=== PATIENT | female | born 1970 | race Caucasian/White ===

== ENCOUNTER 2018-07-28 17:03 | Observation (INO) | payer BC, OTHER ==
[2018-07-28] MEDS ORDERED: Nitroglycerin 2% Ointment 1 INCH/1 GM Packet ONE (17:34)
[2018-07-28 17:42] LABS: #Basophils 0.1 thou/uL (0.0-0.2); #Eosinphils 0.5 thou/uL (0.0-0.7); #Lymphocytes 2.4 thou/uL (1.20-3.40); #Monocytes 0.7 thou/uL (0.11-0.59); #Neutrophils 2.9 thou/uL (1.40-6.50); %Basophils 1.2 % (0.0-1.0); %Lymphocytes 36.5 % (21.0-51.0); %Neutrophils 44.3 % (42.0-75.0); Hemoglobin 14.2 g/dL (12.0-16.0); Mean Corpuscular HGB CONC 32.5 g/dL (32.0-36.0); Mean Corpuscular Hemoglobin 30.2 pg (27.0-31.0); Mean Platelet Volume 5.8 fL (7.4-10.4); Platelet Count 415 thou/uL (130-400); RBC Distribution Width 12.4 % (11.5-14.5); White Blood Cell (WBC) Count 6.6 thou/uL (4.8-10.8)
[2018-07-28 18:02] LABS: ALT (SGPT) 14 U/L (8-55); AST (SGOT) 15 U/L (5-34); Albumin 4.4 g/dL (3.5-5.0); Alkaline Phosphatase 44 U/L (40-150); Anion Gap 12 mmol/L (10-20); BUN (Urea Nitrogen) 13 mg/dL (7.0-18.7); Bilirubin, Total 0.3 mg/dL (0.2-1.2); CK (CPK) 59 U/L (29-168); Calc. Creatinine Clearance 0 mL/min (70-130); Calcium 9.4 mg/dL (7.8-10.44); Carbon Dioxide 25 mmol/L (22-29); Chloride 103 mmol/L (98-107); Estimated GFR-MDRD 72; Globulin 2.8 g/dL (2.4-3.5); Glucose 114 mg/dL (70-105); Lipase 36 U/L (8-78); Potassium 3.7 mmol/L (3.5-5.1); Protein, Total 7.2 g/dL (6.0-8.3); Sodium 136 mmol/L (136-145)
[2018-07-28 18:08] LABS: CKMB 0.4 ng/mL (0-6.6); Troponin I Less than 0.010 ng/mL (< 0.028)
--- NOTE | 2018-07-28 18:50 | RAD ---
PORTABLE CHEST: HISTORY: Chest pain. COMPARISON: 11/25/2013 FINDINGS: Heart size and mediastinum are within normal limits. Lungs are clear of infiltrates. No significant bony findings. IMPRESSION: No active intrathoracic disease. POS: [facility]
[2018-07-28 20:06] VITALS: BMI 31.6
[2018-07-28] MEDS ORDERED: Acetaminophen 325 MG TAB PO PRN (20:17)
[2018-07-28] MEDS ORDERED: Aspirin 325 MG TAB PO SCH (20:30)
[2018-07-28 21:41] LABS: Troponin I Less than 0.010 ng/mL (< 0.028)
[2018-07-28] MEDS ORDERED: Fioricet 325/50/40 mg Tablet PO PRN (22:50)
[2018-07-28] MEDS ORDERED: Morphine 4 MG/ML VIAL SLOW IVP PRN (23:41)
[2018-07-28 23:46] LABS: Troponin I Less than 0.010 ng/mL (< 0.028)
[2018-07-29] MEDS ORDERED: Ondansetron ODT 4 MG TAB PO PRN (00:57)
[2018-07-29 05:24] LABS: #Basophils 0.1 thou/uL (0.0-0.2); #Eosinphils 0.5 thou/uL (0.0-0.7); #Lymphocytes 2.3 thou/uL (1.20-3.40); #Monocytes 0.6 thou/uL (0.11-0.59); #Neutrophils 2.6 thou/uL (1.40-6.50); %Basophils 0.9 % (0.0-1.0); %Eosinophils 8.3 % (0.0-10.0); %Lymphocytes 37.7 % (21.0-51.0); %Monocytes 10.5 % (0.0-10.0); %Neutrophils 42.6 % (42.0-75.0); Hemoglobin 13.1 g/dL (12.0-16.0); Mean Corpuscular HGB CONC 33.3 g/dL (32.0-36.0); Mean Corpuscular Hemoglobin 31.1 pg (27.0-31.0); Mean Corpuscular Volume 93.4 fL (78.0-98.0); Mean Platelet Volume 5.9 fL (7.4-10.4); Platelet Count 366 thou/uL (130-400); RBC Distribution Width 12.5 % (11.5-14.5); Red Blood Cell (RBC) Count 4.21 mill/uL (4.20-5.40)
[2018-07-29 05:35] LABS: Anion Gap 9 mmol/L (10-20); BUN (Urea Nitrogen) 12 mg/dL (7.0-18.7); Calc. Creatinine Clearance 113 mL/min (70-130); Calcium 8.6 mg/dL (7.8-10.44); Carbon Dioxide 24 mmol/L (22-29); Chloride 108 mmol/L (98-107); Estimated GFR-MDRD 83; Glucose 90 mg/dL (70-105); Potassium 3.7 mmol/L (3.5-5.1); Sodium 137 mmol/L (136-145)
--- NOTE | 2018-07-29 05:56 | HP ---
CHIEF COMPLAINT: Chest pain. HISTORY OF PRESENT ILLNESS: This is a 48-year-old female with past medical history of skin melanoma, status post removal; left shoulder mass removed, presenting with left-sided chest pain which occurre d on the day of admission. 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 Patient stated that pain was very lennie re and that she took aspirin which did not help. The patient also took a nitro and the patient state s that she has had something similar in the past, but this time around, the pain was more severe than the chest pain that she had in the past. 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 Patient states that during the episode, she became lightheaded, but denied any shortness of breath. The patient took BC powder during the e pisode including aspirin which did not help. In the ED, the patient took nitro. Patient denies feve r, nausea, or vomiting. Patient denies any pain shooting into the neck, being diaphoretic. REVIEW OF SYSTEMS: Positive for chest pain, lightheadedness, otherwise as documented in the HPI. Al l other systems were reviewed and were negative. FAMILY HISTORY: Dad had diabetes and also heart disease, status post CABG. He when he was in t he 70s. PAST MEDICAL HISTORY: Melanoma, left shoulder mass removed. SURGICAL HISTORY: Tumor removed from left arm in 1984 and right abdomen/oblique region tumor removal , hemangioma per patient. PSYCHIATRIC HISTORY: No previous psychiatric history. SOCIAL HISTORY: Patient says that she drinks half a pack per day and she stopped smoking 6 months ag o, but started smoking again because she has been dealing with stress. The patient has been smoking for 15 years. Patient is an occasional drinker. Denies any illicit drug use. The patient lives at home with family. KNOWN ALLERGIES: IV CONTRAST. CURRENT MEDICATIONS: The patient takes no medications. PHYSICAL EXAMINATION: VITAL SIGNS: Blood pressure is 148/86, pulse 69, respiratory rate of 18, temperature 97.9, O2 satura tion of 98. GENERAL APPEARANCE: The patient is lying in bed, not in acute distress, speaking in full sentences, alert and oriented x3. HEENT: Normocephalic, atraumatic. Pupils are equally round and reactive to light. Extraocular move ments are intact. No scleral icterus. NECK: Supple. No JVD. Trachea is midline. CARDIOVASCULAR: Positive S1, S2, regular rate and rhythm. No murmurs, no gallops, no rubs appreciat ed. The patient did have some reproducible chest tenderness with palpation located in the left upper chest. ABDOMEN: Obese abdomen, nontender, nondistended. No pulsatile masses. No peritoneal signs, no rigi dity, no guarding. EXTREMITIES: 5/5 upper extremity strength, 5/5 lower extremity strength. The patient did have good pulses at the upper and lower extremities. NEUROLOGIC: Cranial nerves II through XII grossly intact. No focal neurologic deficits noted. SKIN: Warm, dry, and intact. No rashes seen. PSYCHIATRIC: Normal affect, alert, and oriented x3. IMAGING: A 12-lead EKG shows normal sinus rhythm. Chest x-ray was negative for any infiltrates, no pneumothorax, no hemothorax noted. In the ED, the patient received nitro. Patient received normal saline. LABORATORY DATA: WBC 6.6, hemoglobin is 14.2, hematocrit is 43.7, platelet count of 415,000. D-dime r less than 0.27. Sodium is 136, potassium is 3.7, chloride is 103, carbon dioxide of 25, BUN 13, cr eatinine 0.84, glucose 114. Troponin is less than 0.010. Triglycerides 83, cholesterol 172, lipase 36. ASSESSMENT AND PLAN: This is a 48-year-old female being admitted for; 1. Chest pain, rule out acute coronary syndrome. At this point, troponins have been negative x2. P atient has been given morphine for pain, nitro, aspirin. We will just being monitored on tele and we have ordered echo and also Cardiology is going to see the patient. The patient will benefit from st ress test. Since myocardial infarction in woman can be atypical presentation, we will monitor the pa tient very closely. 2. Stress related events, most likely induced the patient's chest pain. Per the patient, she has be en having a lot of stress. She stopped smoking 6 months ago, but because of her recent stress, which she does not feel comfortable discussing that can be probably contributing to the patient's chest di scomfort. We will continue to encourage the patient to deal with her stress situation and to try and find comfort and we will monitor the patient. 3. Tobacco abuse. We have encouraged the patient to stop smoking. 4. Gastrointestinal and deep venous thrombosis prophylaxis. We will do sequential compression devic es. We will encourage ambulation. We will do no chemical gastrointestinal prophylaxis.
[2018-07-29] MEDS ORDERED: Nicotine 14 MG PATCH TD SCH (06:00)
--- NOTE | 2018-07-29 08:47 | PDOC.PN ---
- Subjective Encounter Start Date: 07/29/18 Encounter Start Time: 08:46 Ms. Lopez was seen today in follow-up of chest pain. she says she is feeling better this morning. She no longer has any chest pain. - Objective Resuscitation Status: Resuscitation Status FULL:Full Resuscitation MAR Reviewed: Yes Vital Signs & Weight: Vital Signs (12 hours) Temp Pulse Resp BP Pulse Ox 07/29/18 08:24 98.1 F 73 16 128/68 98 07/29/18 04:35 98.1 F 61 18 97/52 L 97 Weight Weight 173 lb I&O: 07/28/18 07/29/18 07/30/18 06:59 06:59 06:59 Intake Total 500 Balance 500 Result Diagrams: 07/29/18 04:51 07/29/18 04:51 Phys Exam - Physical Examination HEENT: PERRLA Respiratory: no wheezing, no rales, no rhonchi, clear to auscultation bilateral Cardiovascular: RRR, no significant murmur, no rub Gastrointestinal: soft, non-tender, no distention, positive bowel sounds Musculoskeletal: no edema Dx/Plan (1) Chest pain Code(s): R07.9 - CHEST PAIN, UNSPECIFIED Status: Acute (2) Tobacco abuse Code(s): Z72.0 - TOBACCO USE Status: Acute - Plan * Chest pain- EKG reviewed by me, and She has some non-specific ST wave changes. A routine treadmill stress test would be non-diagnostic. I explained this to the patient, and offered to refer her to [facility] for a Dobutamine Echo since she has some fear about taking a nuclear stress test. She says she will try the exercise Cardiolite. * Tobacco abuse- brief counseling * Await stress test results.
[2018-07-29 12:02] VITALS: BP 113/61; TEMP 98.3
--- NOTE | 2018-07-29 13:45 | DIS ---
PRIMARY CARE PHYSICIAN: Dr. Kelton Mckeon DATE OF ADMISION: 07/29/2018 DATE OF DISCHARGE: 07/29/2018 DISCHARGE DISPOSITION: Home. PRIMARY DISCHARGE DIAGNOSES: 1. Chest pain. 2. Tobacco abuse. DISCHARGE MEDICATIONS: None. CODE STATUS: FULL CODE. ALLERGIES: IODINATED CONTRAST and SHELLFISH. PROCEDURES DONE DURING ADMISSION: The patient had an exercise Cardiolite which was negative, EF was estimated at 78% and there was no reversible ischemia. HOSPITAL COURSE: Ms. Lopez is a pleasant 48-year-old female who presented to the emergency room compl aining of chest pain. The symptoms of which were somewhat atypical. However, given her history of s moking and history of heart disease in her family she was placed in observation. She was ruled out. Lipid panel was obtained and the total cholesterol was 179, LDL was 102, HDL was 60. Again stress t est was negative. The following morning her symptoms had completely resolved and she is therefore be ing discharged home. She is to follow up with Dr. Kelton Mcekon in approximately 2-3 weeks.
--- NOTE | 2018-07-29 15:03 | NM ---
MYOCARDIAL PERFUSION EVAULATION: INDICATIONS: Chest pain. RADIOPHARMACEUTICAL: Technetium 99m sestamibi IV, 33 millicuries, with stress. Technetium 99m sestamibi IV, 11 millicuries, with rest. FINDINGS: When comparing the rest and stress images, no reversible myocardial perfusion defect is evident. The re is normal wall motion and thickening. Estimated LVEF is 78%. IMPRESSION: Normal myocardial perfusion evaluation. POS: [facility]
== END 2018-07-29 14:02 | disposition home or self-care (01) ==
LOC: ERS 17:03 → 2SW 19:07
PROVIDERS: ADMIT Internal Medicine; ATTEND Internal Medicine
DX: R07.2 Precordial pain (principal); F17.210 Nicotine dependence, cigarettes, uncomplicated; Z91.041 Radiographic dye allergy status; Z91.013 Allergy to seafood
CPT/HCPCS: 36415; 71045; 78452; 80048; 80053; 80061; 82550; 82553; 83690; 83880; 84484; 85025; 85379; 93005; 93017; 93306; 96360; 96374; A9500; G0378; J2270

== ENCOUNTER 2019-01-27 00:08 | Outpatient (CLI) | payer OTHER ==
[2019-01-27 12:11] LABS: #Eosinphils 0.2 thou/uL (0.0-0.7); #Lymphocytes 1.5 thou/uL (1.20-3.40); #Monocytes 0.4 thou/uL (0.11-0.59); #Neutrophils 2.9 thou/uL (1.40-6.50); %Basophils 0.8 % (0.0-1.0); %Eosinophils 4.1 % (0.0-10.0); %Monocytes 8.7 % (0.0-10.0); %Neutrophils 57.4 % (42.0-75.0); Hemoglobin 15.3 g/dL (12.0-16.0); Mean Corpuscular HGB CONC 32.9 g/dL (32.0-36.0); Mean Corpuscular Hemoglobin 29.9 pg (27.0-31.0); Mean Corpuscular Volume 90.9 fL (78.0-98.0); Mean Platelet Volume 5.7 fL (7.4-10.4); Platelet Count 410 thou/uL (130-400); RBC Distribution Width 12.2 % (11.5-14.5); Red Blood Cell (RBC) Count 5.13 mill/uL (4.20-5.40); White Blood Cell (WBC) Count 5.1 thou/uL (4.8-10.8)
[2019-01-27 12:49] LABS: Anion Gap 14 mmol/L (10-20); BUN (Urea Nitrogen) 10 mg/dL (7.0-18.7); Calc. Creatinine Clearance 0 mL/min (70-130); Calcium 10.1 mg/dL (7.8-10.44); Carbon Dioxide 24 mmol/L (22-29); Chloride 104 mmol/L (98-107); Estimated GFR-MDRD Greater than 90; Glucose 73 mg/dL (70-105); Sodium 138 mmol/L (136-145)
== END 2019-01-27 00:09 | disposition home or self-care (01) ==
LOC: LABBT 00:08
PROVIDERS: ATTEND Orthopaedic Surgery
DX: Z01.818 Encounter for other preprocedural examination (principal); S83.206A Unspecified tear of unspecified meniscus, current injury, right knee, initial encounter
CPT/HCPCS: 80048; 85025; 93005; 93010

== ENCOUNTER 2019-01-29 05:47 | Day surgery (SDC) | payer OTHER ==
[2019-01-27 11:24] VITALS: BMI 32.5
[2019-01-29] MEDS ORDERED: Scopolamine 1.5 mg/72 hour Patch ONE (06:53)
--- NOTE | 2019-01-29 10:30 | OP ---
DATE OF PROCEDURE: 01/29/2019 PREOPERATIVE DIAGNOSIS: Right knee posterior horn medial meniscus tear. POSTOPERATIVE DIAGNOSIS: Right knee posterior horn medial meniscus tear. PROCEDURE PERFORMED: Right knee arthroscopy and partial medial meniscectomy. [employer] WORKER: None. BLOOD LOSS: Minimal. COMPLICATIONS: None. DISPOSITION: She did go to recovery room in stable condition. INDICATIONS: Ms. Lopez is an active lady, who comes in complaining of right knee pain and swelling as well as a catching sensation. She has failed nonoperative treatment at this time and wished to have surgery. DESCRIPTION OF PROCEDURE: After verbal consent forms were explained and signed, she was taken to the operative room and at this time was given general anesthetic. Once the level of anesthesia was appropriate, a tourniquet was placed on the right thigh. Leg was placed in the arthroscopic leg epps. the leg was then prepped and draped in standard surgical fashion. The limb was exsanguinated and the tourniquet was taken to 300 mmHg. Inferolateral portal was established. Scope was placed into the knee joint. A needle localization technique was then used to make a medial working portal. Diagnostic arthroscopy commenced in the notch. The ACL and PCL were probed and found to be intact. Medial compartment was evaluated. There was some mild chondromalacia, but nothing significant. There was a significant degenerative complex tear of the posterior horn going to the body of the medial meniscus. Partial meniscectomy was performed using meniscal biter and shaver of any torn tissue. Remaining tissue was left alone. The lateral compartment was probed and felt to be intact. Patellofemoral joint was intact except for a small area of chondromalacia on the patella. No loose bodies noted in the notch. At this time, scope was removed. Knee was drained. Portals were closed with simple nylon stitch. Bulky sterile dressing was applied. Tourniquet was let down. Toes pinked up nicely. She was awakened and taken to recovery room in stable condition. All counts were correct at the end of the case. She did receive preoperative IV antibiotics. Job ID: [id number]
== END 2019-01-29 09:56 | disposition home or self-care (01) ==
LOC: SDC 05:47
PROVIDERS: ATTEND Orthopaedic Surgery
PROC: 0SBC4ZZ Excision of Right Knee Joint, Percutaneous Endoscopic Approach (ICD-10-PCS; principal; 2019-01-29)
DX: S83.231A Complex tear of medial meniscus, current injury, right knee, initial encounter (principal); M22.41 Chondromalacia patellae, right knee; F41.9 Anxiety disorder, unspecified; G43.909 Migraine, unspecified, not intractable, without status migrainosus; Z87.891 Personal history of nicotine dependence; Z91.013 Allergy to seafood; Z91.041 Radiographic dye allergy status

== ENCOUNTER 2019-02-05 15:52 | Outpatient (CLI) | payer OTHER ==
--- NOTE | 2019-02-05 16:31 | ULT ---
ULTRASOUND WITH DOPPLER DUPLEX VENOUS LOWER EXTREMITY RIGHT: HISTORY: 48-year-old female with right calf pain after knee surgery. TECHNIQUE: Color flow Doppler, spectral waveform analysis of pulsed Doppler, and hernandez-scale imaging with sho ever and augmentation, were used to evaluate the right common femoral, femoral, popliteal, posterior tibial, and superficial femoral, veins; and the proximal portions of the profunda femoral and greater saphenous, veins. FINDINGS: There is normal compressibility, demonstration of blood flow by color Doppler and pulsed Doppler, and response to augmentation, in all interrogated veins. There is a noncompressible superficial vein in the right calf which has blood flow. IMPRESSION: 1. No deep vein thrombosis in the right lower extremity. 2. Nonocclusive superficial thrombophlebitis in the right calf. lavon almanzar POS: [facility]
== END 2019-02-05 15:53 | disposition home or self-care (01) ==
LOC: SCSULT 15:52
PROVIDERS: ATTEND Orthopaedic Surgery
DX: M79.661 Pain in right lower leg (principal); I80.01 Phlebitis and thrombophlebitis of superficial vessels of right lower extremity; Z98.890 Other specified postprocedural states

== ENCOUNTER 2019-06-16 13:59 | Emergency (ER) | payer OTHER ==
--- NOTE | 2019-06-16 14:34 | CT ---
Exam: Head CT without contrast HISTORY: Level 1 stroke. Facial numbness. Near syncope. COMPARISON: 02/19/2017 FINDINGS: Hemorrhage: No intraparenchymal hemorrhage or extra-axial hematoma. Brain parenchyma: Cortical hernandez-white matter differentiation is preserved. No mass effect or midline shift. Basilar cisterns are patent. Ventricular system: Ventricles and sulci are patent and symmetric. Calvarium: Intact. Sinuses and mastoid air cells: Adequate aeration. IMPRESSION: No acute intracranial process. Results of study discussed with Dr. Nevarez 06/16/2019 at 2:30 PM Code CR
[2019-06-16 14:45] LABS: #Eosinphils 0.2 thou/uL (0.0-0.7); #Lymphocytes 1.4 thou/uL (1.20-3.40); #Monocytes 0.9 thou/uL (0.11-0.59); #Neutrophils 4.7 thou/uL (1.40-6.50); %Basophils 0.7 % (0.0-1.0); %Eosinophils 2.7 % (0.0-10.0); %Neutrophils 65.7 % (42.0-75.0); Hemoglobin 14.6 g/dL (12.0-16.0); Mean Corpuscular HGB CONC 32.8 g/dL (32.0-36.0); Mean Corpuscular Hemoglobin 30.3 pg (27.0-31.0); Mean Corpuscular Volume 92.5 fL (78.0-98.0); Platelet Count 326 thou/uL (130-400); RBC Distribution Width 12.3 % (11.5-14.5); Red Blood Cell (RBC) Count 4.82 mill/uL (4.20-5.40); White Blood Cell (WBC) Count 7.2 thou/uL (4.8-10.8)
[2019-06-16 15:02] LABS: Bilirubin Negative (Negative); Blood, Urine Negative (Negative); Clarity Clear (Clear); Glucose, Urine (Dipstick) Normal (Negative); Leukocyte Negative Leu/uL (Negative); Nitrite Negative (Negative); Protein, Urine (Dipstick) Negative (Neg-Trace); Urobilinogen Normal mg/dL (Less than 2)
[2019-06-16 15:06] LABS: ALT (SGPT) 20 U/L (8-55); AST (SGOT) 15 U/L (5-34); Albumin 4.4 g/dL (3.5-5.0); Alkaline Phosphatase 59 U/L (40-150); Anion Gap 12 mmol/L (10-20); BUN (Urea Nitrogen) 5 mg/dL (9.8-20.1); Bilirubin, Total 0.5 mg/dL (0.2-1.2); Calc. Creatinine Clearance 0 mL/min (70-130); Calcium 9.6 mg/dL (7.8-10.44); Carbon Dioxide 27 mmol/L (22-29); Chloride 105 mmol/L (98-107); Estimated GFR-MDRD Greater than 90; Globulin 2.4 g/dL (2.4-3.5); Glucose 97 mg/dL (70-105); Potassium 3.6 mmol/L (3.5-5.1); Protein, Total 6.8 g/dL (6.0-8.3); Sodium 140 mmol/L (136-145)
[2019-06-16] MEDS ORDERED: Aspirin 325 MG TAB ONE (15:44)
== END 2019-06-16 15:51 | disposition home or self-care (01) ==
LOC: ERS 13:59
DX: R55 Syncope and collapse (principal); R20.0 Anesthesia of skin; Z87.891 Personal history of nicotine dependence
CPT/HCPCS: 36416; 70450; 80053; 81003; 84484; 85025; 93005; 96360